=== PATIENT | male | born 1965 | race Caucasian/White ===

== ENCOUNTER → 2021-05-16 | Outpatient (CLI) | payer MEDICARE ==
[~2021-05-16] MED LIST: CENT1TAB PO; CHOL100029 PO; GLIM1TAB4 PO; LEVO50TA5 PO; LEVO75TA4 PO; MEMA10TA19 PO; RIVA6CAP17 PO; ROSU20TA5 PO; SYNT25TA PO
--- NOTE | 2021-05-17 07:35 | REPVR ---
PROCEDURE INFORMATION: Exam: MR Head Without Contrast Exam date and time: 05/16/2021 3:39 PM Age: 55 years old Clinical indication: Altered mental status/memory loss/ TECHNIQUE: Imaging protocol: MR of the head without contrast. COMPARISON: MRI BRAIN W/ W/O CONTRAST - OUTSIDE PRIOR 12/19/2018 3:36 PM FINDINGS: Brain: There is moderate cerebral and cerebellar atrophy. This is more than one would expect in an otherwise healthy 55-year-old male. Cerebral ventricles: Normal. No ventriculomegaly. Bones/joints: Unremarkable. Paranasal sinuses: Normal as visualized. No acute sinusitis. Mastoid air cells: Normal as visualized. No mastoid effusion. Orbital cavity: Unremarkable. Soft tissues: Unremarkable. IMPRESSION: There is moderate cerebral and cerebellar atrophy. This is more than one would expect in an otherwise healthy 55-year-old male. Please correlate with any known systemic illness. Electronically signed by: Galen Joseph On 05/17/2021 07:35:29 AM
== END ==
LOC: M PLAIMG 14:51
PROVIDERS: ATTEND Hospitalist
DX: F03.91 Unspecified dementia, unspecified severity, with behavioral disturbance (principal); G31.9 Degenerative disease of nervous system, unspecified